=== PATIENT | male | born 1985 | race Caucasian/White ===

== ENCOUNTER 2020-03-04 20:48 | Inpatient (IN) | payer OTHER ==
[2020-03-04] MEDS ORDERED: Lorazepam 2 MG/ML VIAL ONE ×3 (21:07→21:58)
[2020-03-04 21:21] LABS: Bilirubin Negative (Negative); Blood, Urine Negative (Negative); Clarity Clear (Clear); Glucose, Urine (Dipstick) Normal (Negative); Ketone, Urine Negative (Negative); Leukocyte Negative Leu/uL (Negative); Nitrite Negative (Negative); Protein, Urine (Dipstick) 20 mg/dL (Neg-Trace); Specific Gravity, Urine 1.027 (1.002-1.036); Urobilinogen Normal mg/dL (Less than 2); pH, Urine 6.5 (5.0-9.0)
[2020-03-04 21:25] LABS: #Basophils 0.1 thou/uL (0.0-0.2); #Eosinphils 0.1 thou/uL (0.0-0.7); #Lymphocytes 4.8 thou/uL (1.20-3.40); #Monocytes 0.5 thou/uL (0.11-0.59); #Neutrophils 4.8 thou/uL (1.40-6.50); %Basophils 0.8 % (0.0-1.0); %Eosinophils 0.6 % (0.0-10.0); %Monocytes 4.8 % (0.0-10.0); %Neutrophils 46.8 % (42.0-75.0); Hemoglobin 11.7 g/dL (14.0-18.0); Mean Corpuscular HGB CONC 33.6 g/dL (32.0-36.0); Mean Corpuscular Hemoglobin 29.5 pg (27.0-31.0); Mean Corpuscular Volume 87.6 fL (78.0-98.0); Mean Platelet Volume 6.8 fL (7.4-10.4); Platelet Count 396 thou/uL (130-400); RBC Distribution Width 14.4 % (11.5-14.5); Red Blood Cell (RBC) Count 3.96 mill/uL (4.70-6.10); White Blood Cell (WBC) Count 10.3 thou/uL (4.8-10.8)
[2020-03-04 21:34] LABS: Amphetamine Not Detected (NotDetected); Barbiturates Screen Not Detected (NotDetected); Benzodiazepine Screen Detected (NotDetected); Cocaine Metabolite Screen Not Detected (NotDetected); Medtox Control Line Valid? VALID (VALID); Medtox Reader # READER 4; Methadone Not Detected (NotDetected); Methamphetamine Not Detected (NotDetected); Opiate Screen Not Detected (NotDetected); Oxycodone Screen Not Detected (NotDetected); Phencyclidine (PCP) Not Detected (NotDetected); THC/Cannabinoid Screen Not Detected (NotDetected); Tricyclic Screen Detected (NotDetected)
[2020-03-04 21:36] LABS: ALT (SGPT) Less than 7 U/L (8-55); AST (SGOT) 13 U/L (5-34); Albumin 3.8 g/dL (3.5-5.0); Alkaline Phosphatase 69 U/L (40-110); Anion Gap 12 mmol/L (10-20); BUN (Urea Nitrogen) 5 mg/dL (8.9-20.6); Bilirubin, Total 0.5 mg/dL (0.2-1.2); Calc. Creatinine Clearance 0 mL/min (70-130); Calcium 8.4 mg/dL (7.8-10.44); Carbon Dioxide 21 mmol/L (22-29); Chloride 111 mmol/L (98-107); Estimated GFR-MDRD 73; Globulin 2.6 g/dL (2.4-3.5); Glucose 91 mg/dL (70-105); Protein, Total 6.4 g/dL (6.0-8.3); Sodium 141 mmol/L (136-145)
[2020-03-04 21:39] LABS: Potassium 2.9 mmol/L (3.5-5.1)
[2020-03-04 21:40] LABS: Troponin I 0.014 ng/mL (< 0.028)
[2020-03-04 21:43] LABS: Acetaminophen Less than 6.0 mcg/mL (10.0-30.0); Alcohol Less than 10 mg/dL (Less than 10); CK (CPK) 142 U/L (30-200); Salicylate Less than 8.0 mg/dL (15.0-30.0)
[2020-03-04] MEDS ORDERED: NS 0.9% w/ 40 MEQ KCL 1,000 ML IV SCH (22:00)
[2020-03-04] MEDS ORDERED: Rocuronium Bromide 10 MG/ML (10ML VIAL) ONE (22:03)
[2020-03-04] MEDS ORDERED: Propofol 1,000 MG/100 ML VIAL IV ONE (22:19)
[2020-03-04] MEDS ORDERED: fentaNYL Citrate/PF 2,000 MCG in Sodium Chloride 0.9% 60 ML IV SCH ×2 (22:37→23:59)
--- NOTE | 2020-03-04 22:41 | RAD ---
EXAM: Single view of the chest HISTORY: Intubation for respiratory failure COMPARISON: None FINDINGS: Single view of the chest shows a normal sized cardiomediastinal silhouette. An endotrachea l tube is seen with its tip at the lower border of the clavicles. An NG tube is seen in the stomach. Scattered airspace opacities are seen in the left lower lobe. No acute osseous abnormality. IMPRESSION: 1. Left lower lobe infiltrate 2. Appropriate position of endotracheal tube and NG tube
[2020-03-04 22:56] LABS: Actual Bicarbonate (HCO3a) 19.8 mEq/L (22-28); Analyzer IN Cardio ER; Base Excess (BEa) -4.5 mEq/L (-2.0 to +3.0); CO2 Tension 34.1 mmHg (35.0-45.0); Calcium, Ionized (arterial) 1.11 mmol/L (1.12-1.30); Carboxyhemoglobin (COHb) 1.8 gm% (0.0-3.0); Hemoglobin (Hb) 12.3 g/dL (14.0-18.0); O2 Tension (PaO2), arterial 98.8 mmHg (80.0-100.0); Potassium - ABG Lab 2.72 mmol/L (3.70-5.30); pH, Arterial 7.38 (7.35-7.45)
[2020-03-04 23:00] LABS: ALV-art Gradient 143.775 (0-20); Puncture Site RRA
--- NOTE | 2020-03-04 23:31 | PDOC.FPRHP ---
- History of Present Illness Chief Complaint: overdose History of Present Illness: Pt is a 34yo male with hx of multiple drug overdoses who presents to ED after being found down. He was found down with 2 empty medicine bottles- aripiprazole and benadryl. He was taken by EMS to ED, was very combative despite being given multiple doses of ativan which eventually led to his sedation and intubation. History was not obtained from patient due to him being intubated. From records it is noted that he was seen at [facility] recently for lacerations to both arms, suicide attempt. History include drug abuse, drug overdose and multiple suicide attempts. ED Course: 6mg lorazepam, 2L NS, 20mg etomidate, 80mg rocuronium, intubated - Allergies/Adverse Reactions Allergies Allergy/AdvReac Type Severity Reaction Status Date / Time No Allergy Information Allergy Verified 03/05/20 00:30 Available - History PMHx: schizoaffective disorder, drub abuse, suicide attempts PSHx: unable to obtain FHx: unable to obtain Social: unable to obtain - Review of Systems ROS unobtainable: due to endotracheal tube - Vital signs BP: 141/105, HR 96, RR 33, T 96.8F - Physical Exam -Constitutional: intubated HEENT: PERRLA, no scleral icterus -HEENT: poor dentition Neck: trachea midline Chest: no lesions Heart: RRR, normal S1/S2 Lungs: CTAB, no wheezing Abdomen: soft, no masses/distention Musculoskeletal: normal structure, normal tone -Neurological: GCS 3T -Skin: laceration repaired on right forearm, laceration repaired x2 on left forearm Heme/Lymphatic: no unusual bruising or bleeding, no petechia Psychiatric: other (cannot assess) FMR H&P: Results - Labs Result Diagrams: 03/04/20 21:13 03/04/20 21:13 Lab results: WBC 10.3 thou/uL (4.8-10.8) 03/04/20 21:13 Hgb 11.7 g/dL (14.0-18.0) L 03/04/20 21:13 Hct 34.6 % (42.0-52.0) L 03/04/20 21:13 MCV 87.6 fL (78.0-98.0) 03/04/20 21:13 Plt Count 396 thou/uL (130-400) 03/04/20 21:13 Neutrophils % 46.8 % (42.0-75.0) 03/04/20 21:13 ABG pH 7.38 (7.35-7.45) 03/04/20 22:31 ABG pCO2 34.1 mmHg (35.0-45.0) L 03/04/20 22:31 ABG pO2 98.8 mmHg (80.0-100.0) 03/04/20 22:31 Sodium 141 mmol/L (136-145) 03/04/20 21:13 Potassium 2.9 mmol/L (3.5-5.1) L* 03/04/20 21:13 Chloride 111 mmol/L (98-107) H 03/04/20 21:13 Carbon Dioxide 21 mmol/L (22-29) L 03/04/20 21:13 BUN 5 mg/dL (8.9-20.6) L 03/04/20 21:13 Creatinine 1.15 mg/dL (0.7-1.3) 03/04/20 21:13 Glucose 91 mg/dL (70-105) 03/04/20 21:13 Calcium 8.4 mg/dL (7.8-10.44) 03/04/20 21:13 Total Bilirubin 0.5 mg/dL (0.2-1.2) 03/04/20 21:13 AST 13 U/L (5-34) 03/04/20 21:13 ALT Less than 7 U/L (8-55) L 03/04/20 21:13 Alkaline Phosphatase 69 U/L (40-110) 03/04/20 21:13 Creatine Kinase 142 U/L (30-200) 03/04/20 21:13 Serum Total Protein 6.4 g/dL (6.0-8.3) 03/04/20 21:13 Albumin 3.8 g/dL (3.5-5.0) 03/04/20 21:13 Urine Ketones Negative mg/dL (Negative) 03/04/20 21:06 Urine Blood Negative (Negative) 03/04/20 21:06 Urine Nitrite Negative (Negative) 03/04/20 21:06 Ur Leukocyte Esterase Negative Shiela/uL (Negative) 08/27/20 21:06 FMR H&P: A/P - Plan #Suicide attempt, drug overdose - hx of suicide attempts, drug abuse - poison control case #[id number]: repeat ekg q6h, if QRS>100 give 2 amp bicarb - intubated in ED due to combativeness - multiple lacs on forearms due to intentional self harm, 2 were previously repaired at [facility], repaired one on left forearm: 5cm, 9 tanner placed - tetanus shot and doxycylcine ordered - admit to CCU, consult pulmonology, appreciate recs - once stable, consider consult [facility] #LLL PNA vs Pneumonitis - possible aspiration due to encephalopathy 2/2 drug overdose - doxycycline ordered to cover anaerobes # Aucte encephalopathy 2/2 drug overdose - GCS 3T - will call poison control #hypokalemia - K 2.9 - gave potassium in ED - will recheck BMP Code: Full Diet: NPO IVF: LR 150 DVT ppx: lovenox Dispo: admit to CCU, will consult pulm and poison control, LOS >48 hours FMR H&P: Upper Level - Plan Date/Time: 03/04/20 0154 I, Mitzy Huffman MD, have evaluated this patient and agree with findings/plan as outlined by international sourcing manager resident. Pertinent changes/additions are listed here. This is a 34yo M w/ hx of schizophrenia who presents to the ER via [place] altered and agitated with empty bottles of ariprazole and benadryl. Per nursing report, the patient was seen at [facility] yesterday for cutting his wrists. Several past suicide attempts. Unable to obtain further information from patient due to patient being intubated /sedated. No contact information for family could be located at this time. In the ER, the patient was increasingly agitated and given lorazepam, but continued to be agitated and was therefore intubated. GCS of 7. EKG sinus tachycardia. PE: General: intubated/sedated Head: NC/AT, PERRL, trachea midline Cards: RRR, no murmurs, rubs, gallops Resp: CTAB Abd: non distended, non tense, normal BS Neuro: no eye opening, no verbal sounds on our exam, but previously combative and incomprehensible sounds, withdrawals to pain Skin: patient was noted to have 5cm wound on L forearm, stitches in seperate wound on L forearm and tanner on wound on right forearm. Plan: Acute metabolic encephalopathy 2/2 Drug overdose with suicide attempt Per EMS report, bottles of abilify and benadryl. EKG sinus tachycardia, QRS 90, QTc 649. - Will call poison control for recommendations - UDS pending - Patient remains ventilated/sedation. Will consult pulm for vent management. Appreciate recs. - Monitor on tele - Will start on doxycycline to cover for possible aspiration PNA and skin. Procal pending. - Will need MHMR consult once medically stable Hypokalemia K 2.9. - Will continue to monitor. Replace as necessary. Monitor tele. LLL PNA vs pneumonitis CXR showing LLL infiltrate. - Procal pending - Will cover with doxy for now. - COVID pending Skin laceration L forearm - Skin lac repair in the ER of L forearm Schizophrenia - Will consult MHMR once medically stable Lines: calvillo, intubated, NG, peripheral x 2 Ppx: lovenox, pepcid Code: Full PCP: none Case discussed with Dr. Pena Addendum - Attending - Attending Attestation Date/Time: 03/05/20 3083 I personally evaluated the patient and discussed the management with Dr. Begum/ Nathanael. I agree with the History, Examination, Assessment and Plan documented above with any addition or exceptions noted below. see my dictated H&P for details. Doc# [id number]
[2020-03-04] MEDS ORDERED: Ventilator Sedation Protocol 1 EACH FS SCH (23:45)
[2020-03-04] MEDS ORDERED: Ondansetron PF 4 MG/2 ML Vial IVP PRN (23:53)
[2020-03-04] MEDS ORDERED: Acetaminophen 325 MG TAB PO PRN (23:53)
[2020-03-04] MEDS ORDERED: Ondansetron ODT 4 MG TAB PO PRN (23:53)
[2020-03-04] MEDS ORDERED: Acetaminophen 650 MG Suppository PR PRN (23:53)
[2020-03-04] MEDS ORDERED: Lorazepam 2 MG/ML VIAL SLOW IVP PRN (23:59)
[2020-03-04] MEDS ORDERED: Fentanyl BOLUS 250 ML IVPB PRN (23:59)
[2020-03-04] MEDS ORDERED: DISCONTINUE PREVIOUS NARCOTIC PAIN MEDICATIONS AND BENZODIAZEPINES FS SCH (23:59)
[2020-03-04] MEDS ORDERED: Propofol BOLUS 1,000 MG/100 ML VIAL IV PRN (23:59)
[2020-03-04] MEDS ORDERED: Morphine 2 MG/ML VIAL SLOW IVP PRN (23:59)
[2020-03-05 00:15] VITALS: BMI 26.6
--- NOTE | 2020-03-05 00:33 | PDOC.BPN ---
<Melina Begum - Last Filed: 03/05/20 00:28> - Brief Progress Note Procedure Name: Laceration Repair Indication: Reduce risk of infection Location: left forearem Pre-Procedure Diagnosis: Laceration Post-Procedure Diagnosis: Repaired Laceration Informed consent was not obtained due to patient being intubated. PROCEDURE: The appropriate timeout was taken. The wound was copiously irrigated. 9 tanner were placed. Estimated blood loss was less than 0.5 mL. A dressing was applied to the area and anticipatory guidance, as well as standard post-procedure care, was explained. Return precautions are given. The patient tolerated the procedure well without complications. Follow-up visit in one week for staple removal and evaluation of the laceration. <Efren Pena - Last Filed: 03/05/20 00:35> - Brief Progress Note ATTENDING ADDENDUM: Present for and supervised procedure above.
[2020-03-05] MEDS: Lactated Ringer's 1,000 ML IV SCH ×2 (01:46→05:00)
[2020-03-05] MEDS: Propofol 1,000 MG/100 ML VIAL IV PRN ×2 (02:05→04:57)
[2020-03-05 04:06] LABS: #Basophils 0.1 thou/uL (0.0-0.2); #Lymphocytes 2.7 thou/uL (1.20-3.40); #Monocytes 0.4 thou/uL (0.11-0.59); #Neutrophils 4.4 thou/uL (1.40-6.50); %Basophils 0.7 % (0.0-1.0); %Eosinophils 0.4 % (0.0-10.0); %Lymphocytes 35.5 % (21.0-51.0); %Monocytes 4.8 % (0.0-10.0); %Neutrophils 58.7 % (42.0-75.0); Hemoglobin 9.8 g/dL (14.0-18.0); Mean Corpuscular HGB CONC 32.9 g/dL (32.0-36.0); Mean Corpuscular Hemoglobin 29.5 pg (27.0-31.0); Mean Corpuscular Volume 89.8 fL (78.0-98.0); Mean Platelet Volume 6.6 fL (7.4-10.4); Platelet Count 309 thou/uL (130-400); RBC Distribution Width 14.4 % (11.5-14.5); Red Blood Cell (RBC) Count 3.33 mill/uL (4.70-6.10); White Blood Cell (WBC) Count 7.5 thou/uL (4.8-10.8)
[2020-03-05 04:23] LABS: Anion Gap 11 mmol/L (10-20); BUN (Urea Nitrogen) 4 mg/dL (8.9-20.6); Calc. Creatinine Clearance 158 mL/min (70-130); Calcium 7.6 mg/dL (7.8-10.44); Carbon Dioxide 21 mmol/L (22-29); Chloride 116 mmol/L (98-107); Estimated GFR-MDRD Greater than 90; Glucose 98 mg/dL (70-105); Sodium 144 mmol/L (136-145)
[2020-03-05 04:24] LABS: Magnesium 1.8 mg/dL (1.6-2.6); Phosphorus 3.6 mg/dL (2.3-4.7)
--- NOTE | 2020-03-05 06:14 | PDOC.FM ---
- Subjective Subjective: Patient was sedated and intubated during the evaluation without evidence of cardiopulmonary distress or uncontrolled pain. - Objective Vital Signs & Weight: Vital Signs (12 hours) Temp Pulse Resp Pulse Ox 03/05/20 06:00 12 03/05/20 04:00 97.5 F L 12 03/05/20 02:25 78 03/05/20 02:00 23 H 03/05/20 00:30 23 H 100 03/05/20 00:00 97.9 F 03/04/20 23:59 92 03/04/20 20:56 97.9 F Weight Weight 89.2 kg Most Recent Monitor Data Heart Rate from ECG 71 NIBP 102/68 NIBP BP-Mean 79 Respiration from ECG 14 SpO2 100 I&O: 03/03/20 03/04/20 03/05/20 06:59 06:59 06:59 Intake Total 1231 Output Total 2075 Balance -844 Result Diagrams: 03/05/20 03:54 03/05/20 03:54 Phys Exam - Physical Examination Constitutional: NAD HEENT: moist MMs Neck: supple Respiratory: no wheezing, no rales, no rhonchi, clear to auscultation bilateral Cardiovascular: RRR, no significant murmur, no rub Gastrointestinal: soft, non-tender, no distention, positive bowel sounds Musculoskeletal: no edema, pulses present Lymphatic: no nodes Deviation from normal: GCS: 3T Deviation from normal: s/p Lac Repair on Left Forearm - bandage in place Dx/Plan (1) Toxic metabolic encephalopathy Code(s): G92 - TOXIC ENCEPHALOPATHY Status: Acute (2) Drug overdose, intentional Code(s): T50.902A - POISONING BY UNSP DRUG/MEDS/BIOL SUBST, SELF-HARM, INIT Status: Acute (3) Suicide attempt Status: Acute (4) Anticholinergic drug overdose Code(s): T44.3X1A - POISONING BY OTH PARASYMPATH AND SPASMOLYTICS, ACC, INIT Status: Acute (5) Hypokalemia Code(s): E87.6 - HYPOKALEMIA Status: Acute (6) Laceration Code(s): PKU2204 - Status: Acute (7) Schizoaffective disorder Code(s): F25.9 - SCHIZOAFFECTIVE DISORDER, UNSPECIFIED Status: Chronic - Plan Plan: Patient is a 34 y/o male who presents to the ED [place] following an apparent intentional drug overdose of Aripiprazole and Diphenhydramine. #Toxic Metabolic Encephalopathy -Likely secondary to Intentional Drug Overdose (Aripiprazole, Diphenhydramine) -Per chart review, patient has a Hx of suicide attempts and drug abuse -Intubated in the ED due to combativeness, did not respond to initial management with Benzos - admitted to the ICU -VSS with unremarkable Physical Exam except as documented below -Anion Gap: 9 -Cr: 1.15 -Glucose: 91 -M.8 / Phos: 3.6 -AST: 13 / ALT: <7 -CK: 142 -Trop: 0.014 -TSH: 0.9667 -Fluid resuscitation ongoing w/ LR @ 150 ml/hr -Pulm: Consulted, recs appreciated #Suicide Attempt (Drug Overdose) -Poison Control: Consulted, recommended repeat EKG Q6H - if QRS>100 then administer 2 amps BiCarb (Case: #[id number]) -EKG (0200): NSR, QRS: 98 ms -Will plan for Suicide Precautions following extubation -Case Management: Consulted, recs appreciated -Will consult MHMR following extubation -See Above #LLL PNA vs Pneumonitis -CXR: Possible LLL infiltrate -Possibly secondary to Toxic Metabolic Encephalopathy -Doxycycline 100 mg BID for anaerobic coverage -Afebrile on arrival - no fevers documented since admission -WBC: 10.3 > 7.5 -Procal: < 0.02 -Will likely DC ABx based on low suspicion for PNA #Hypokalemia -K: 2.9 on admission > 4.0 on 03/05 -s/p K 40 meEq administration in the ED -Will monitor closely via AM Labs - supplement as needed #Lacerations -Multiple lacs noted on forearms in various stages of repair, likely intentional -Per chart review, 2 were previously repaired at [employer] repaired additional lac via staple placement -s/p Tetanus PPx in ED -Will plan for Suicide Precautions following extubation #Schizoaffective Disorder -Will restart home medications following stabilization and MHMR consult PCP: CC Code: Full Diet: NPO Activity: Bed Rest VTE PPx: Lovenox GI PPx: Famotidine Dispo: Patient is currently stable and admitted to the CCU. Will continue IVF as per above and monitor serial EKGs. Pulm, Poison Control and Case Management consulted, recs appreciated. Will attempt to wean sedation and extubate as tolerated. Will plan for MHMR consult and Suicide Precautions immediately thereafter. Expected LOS 48H. Addendum - Attending - Attending Attestation Date/Time: 03/05/20 1012 I personally evaluated the patient and discussed the management with Dr. Rios. I agree with the History, Examination, Assessment and Plan documented above with any addition or exceptions noted below. The patient remains intubated and sedated. He was admitted following intentional overdose with history of multiple suicide attempts. He was agitated in the ER and was sedated. Pt's EKG's have been unremarkable. Pt will need MHMR evaluation when he is extubated. Pt reportedly has an extensive psych history.
--- NOTE | 2020-03-05 06:31 | HP ---
CHIEF COMPLAINT: Altered mental status, overdose. HISTORY OF PRESENT ILLNESS: I have reviewed all documentation, discussed the care and manage of this patient with doctors with Dr. Begum and Dr. Huffman. I agree with the documentation, the history and physical unless otherwise stated in the following attestation. In summary, Mr. Magana is a 34-year-old male with a known past medical history of schizoaffective disorder with reported history of multiple recent ER visits throughout the area for suicide attempts. He presented to the ER via helicopter transport [place] railroad workers with empty bottles of Abilify and Benadryl next to him. He was altered, agitated and actively suicidal at the time. He was promptly brought to the [facility] ER for evaluation. While in the ER, he appeared more agitated and it was felt that he was a harm to himself and the staff at that time. He was RSI medications and intubated to protect himself and the hospital staff due to his progressively worsening agitation. At the time of my examination, the patient was approximately 20 minutes post RSI and intubation. He was nonresponsive, due to this he was unable to provide any additional history. Residents are in the process of calling his family to discuss his medical history and recent illness. ER COURSE: Labs, EKG, chest x-ray, RSI for agitation requiring large doses of sedatives. Please see communications marketing intern note for past medical, surgical, social, and family history. PHYSICAL EXAMINATION: VITAL SIGNS: Blood pressure 150/90, pulse 105, respiratory rate of 30, temp 98.1, oxygen saturation 100% on mechanical ventilation. Ventilator settings SIMV with a rate of a rate 12, tidal volume 550, PEEP 5, pressure support 10, FiO2 40%, peak and plateau air pressures are within normal limits. PHYSICAL EXAMINATION: GENERAL: Intubated, sedated, nonresponsive. HEENT: Normocephalic, atraumatic. Pupils equal, round, reactive to light. PERRLA. Mucous membranes are dry. CARDIOVASCULAR: Tachycardic, regular. No murmurs. PULMONARY: Clear to auscultation bilaterally. ABDOMEN: Soft, nondistended. SKIN: There are multiple lacerations from reported self-harm on his forearms. On his right forearm, there is a stapled laceration that is approximately 67 minutes cm in length. On his left forearm, there are 2 lacerations, 1 that is approximately 4 to 5 cm with nylon sutures in place. He also appears to have a new unclosed laceration approximately 6 cm below the antecubital fossa that is not actively bleeding at this time. He has dried blood on his left hand. NEUROLOGIC: Cannot assess due to intubation and recent use of paralytic agents. PERTINENT LABORATORY FINDINGS: Blood gas, pH 7.38, pCO2 34.1, pO2 98.8, bicarb 19.8, TSH 0.86. Troponin negative. Tylenol negative. Salicylates negative. CPK 142 , potassium 2.9, chloride 111. Urine drug screen positive for benzodiazepines and tricyclics. Hemoglobin 11, platelets 396. Urinalysis was negative. IMAGING: EKG reviewed by me, sinus tachycardia, rate 108, VA interval prolonged 142, no obvious ST depressions or elevations. Normal QRS intervals and borderline prolonged QTc interval of 469, borderline LVH. Chest x-ray reviewed by me. Left lower lobe infiltrate. Endotracheal tube terminates 1 or 2 cm below the clavicle. Orogastric tube is below the diaphragm. No obvious fractures. Normal-appearing cardiac silhouette. DISCUSSION AND DECISION-MAKING: Mr. Magana is a 34-year-old male with known past history of schizoaffective disorder with history of self-harm and suicide attempts. He presented with what appears to be an intentional overdose using Abilify and Benadryl. At this time, we are unsure, if there are other medications taken. Due to his agitation, he was sedated, paralyzed and intubated to protect himself and hospital staff. Exam is remarkable for obvious signs of self-harm. Labs remarkable for low potassium. PLAN OF TREATMENT: As follows. 1. Suicide attempts via intentional overdose with Abilify and Benadryl. We will contact poison control and await for additional recommendations and management. The patient to remain intubated and sedated until further medications began to wear off and he can be safely cared for. Continue ventilatory support. Residents to contact family for additional history and to update them on his current status. 2. Hypokalemia. We will replete and monitor closely. He has currently received 40 mEq at this time. 3. Schizoaffective disorder. We will discuss with family and restart home medications, so long as Abilify is not a home medication. 4. Prolonged VA interval likely as a result of overdose. Repeat EKG tomorrow morning. 5. Forearm laceration, this was reapproximated with tanner by my team. See the resident note for additional details. Will give tetunus booster and start doxycycline empirically as he cannot provide history of onset of the wound or how it occurred. Concern for self harm. 6. Left lower lobe pneumonia vs pneumonitis. Procalcitonin pending. doxycycline for coverage. 7.See communications marketing intern note for management of chronic medical problems. DISPOSITION: Estimated length of stay. Inpatient critical care unit greater than 2 midnights. Approximately 40 minutes critical care time was spent on this patient by me, excluding time spent on the laceration repair of his forearm. Job ID: [id number] MTDD
[2020-03-05 07:14] VITALS: BP 104/77
[2020-03-05] MEDS ORDERED: Adacel (T-DAP) 0.5 ML SYRINGE IM ONE (09:00)
[2020-03-05] MEDS ORDERED: Enoxaparin Sodium 40 MG/0.4 ML SYRINGE SC SCH ×2 (09:00→13:30)
[2020-03-05] MEDS ORDERED: Famotidine/PF 20 mg/2ml Vial SLOW IVP SCH (09:00)
[2020-03-05] MEDS ORDERED: Prevnar 13-Val Conj/PF 0.5 ML SYRINGE IM ONE (13:00)
[2020-03-05 13:02] VITALS: TEMP 98.9
[2020-03-05] MEDS ORDERED: Haloperidol Lactate 5 MG/ML VIAL IM PRN (14:18)
[2020-03-05 14:29] LABS: SARS-CoV-2 MS2 Positive; SARS-CoV-2 N Gene Negative; SARS-CoV-2 S Gene Negative; SARS-CoV-2 by NAA Not Detected (NotDetected); SARS-CoV-2 orf1ab Negative
--- NOTE | 2020-03-05 15:05 | PDOC.BPN ---
- Brief Progress Note Pt is stating he wants to leave. Discussed in length with patient he needs to stay. This is my first encounter with the patient but he does not demonstrate good insight or judgment. He has attempted suicide and personally harmed himself twice in the previous two days. Pt has vocalized intent to harm himself and suicide to co-residents. Haldol has been ordered if needed to chemically restrain. If this is not achievable nursing staff has notified Doyle GONZALEZ to ensure safety of patient and staff. Goal is to keep patient and safely get him to inpatient psychiatry with the [facility]. Myke Son, 03/05/20 1500
--- NOTE | 2020-03-05 16:01 | CON ---
DATE OF CONSULTATION: HISTORY OF PRESENT ILLNESS: A 34-year-old gentleman, who was brought to the ER yesterday around 2049 with intentional overdose of aripiprazole and Benadryl. He was altered. He was intubated. No additional information obtained. Apparently, his father is a nurse practitioner here locally in [place]. He is supposed to be taking Wellbutrin 150 mg once a day and Seroquel 200 mg 2 times a day. Additional information is that he has had previous history of suicidal intentions. PAST MEDICAL HISTORY: Pertinent for bipolar schizophrenic, PTSD issues. PAST SURGICAL HISTORY: Otherwise unknown. ALLERGIES: UNKNOWN. TOBACCO AND ALCOHOL: Unknown at this time. PHYSICAL EXAMINATION: GENERAL: He is intubated and sedated. VITAL SIGNS: Pulse 66, sats 100% on FiO2, blood pressure 101/72. CHEST: Reveals no wheezing, no crackles. CARDIAC: Normal S1 and S2. No gallop. ABDOMEN: Soft. LABORATORY DATA: White count is 7, H and H 9 and 29, platelet count is normal. PO2 of 98, pCO2 30, pH 7.38. Lytes are normal. Potassium is 4. Urine was normal. His drug screen showed tricyclics and benzos. X-ray, questionable left-sided infiltrate. ASSESSMENT: History of presumed overdose on Benadryl and aripiprazole, unknown quantity, but apparently altered mental status, nothing else found. Possibly left-sided pneumonia. History of posttraumatic stress disorder, schizophrenia, bipolar disorder. PLAN: We will hold sedation. Consider weaning and extubation if he remains stable. He is going to require ongoing counseling at [facility]. This is a 45-minute critical time. Job ID: [id number]
[2020-03-06] MEDS ORDERED: Nicotine 21 MG PATCH TD SCH (12:00)
--- NOTE | 2020-03-06 14:40 | EKG ---
Test Reason : Blood Pressure : / mmHG Vent. Rate : 108 BPM Atrial Rate : 108 BPM P-R Int : 152 ms QRS Dur : 098 ms QT Int : 350 ms P-R-T Axes : 078 061 080 degrees QTc Int : 469 ms Sinus tachycardia Septal infarct , age undetermined Abnormal ECG Confirmed by LEÓN GILL, ARACELI Vázquez ([id number]), editor city [place]OLA HERNANDEZ ([id number]) on 03/06/2020 2:39:41 PM Referred By: Confirmed By:ARACELI TRAORE MD
--- NOTE | 2020-03-08 17:29 | EKG ---
Test Reason : Blood Pressure : / mmHG Vent. Rate : 067 BPM Atrial Rate : 067 BPM P-R Int : 170 ms QRS Dur : 094 ms QT Int : 412 ms P-R-T Axes : 067 030 046 degrees QTc Int : 435 ms Normal sinus rhythm Normal ECG Confirmed by RUFINA COLLINS (2) on 03/08/2020 5:29:38 PM Referred By: JUAN M Confirmed By:RUFINA COLLINS
--- NOTE | 2020-03-08 17:29 | EKG ---
Test Reason : Blood Pressure : / mmHG Vent. Rate : 075 BPM Atrial Rate : 075 BPM P-R Int : 166 ms QRS Dur : 098 ms QT Int : 406 ms P-R-T Axes : 055 015 055 degrees QTc Int : 453 ms Sinus rhythm with Premature supraventricular complexes Possible Lateral infarct , age undetermined Abnormal ECG When compared with ECG of 04-MAR-2020 20:57, (Unconfirmed) Premature supraventricular complexes are now Present Confirmed by RUFINA COLLINS (2) on 03/08/2020 5:29:00 PM Referred By: YOJANA Confirmed By:RUFINA COLLINS
--- NOTE | 2020-03-08 17:42 | EKG ---
Test Reason : Blood Pressure : / mmHG Vent. Rate : 097 BPM Atrial Rate : 097 BPM P-R Int : 184 ms QRS Dur : 098 ms QT Int : 346 ms P-R-T Axes : 064 -02 054 degrees QTc Int : 439 ms Normal sinus rhythm Normal ECG Confirmed by RUFINA COLLINS (2) on 03/08/2020 5:42:27 PM Referred By: JUAN M Confirmed By:RUFINA COLLINS
== END 2020-03-05 16:00 | disposition home or self-care (01) | DRG 917 ==
LOC: ERS 20:48 → CCU 22:05
PROVIDERS: ADMIT Family Medicine; ATTEND Family Medicine
PROC: 0BH17EZ Insertion of Endotracheal Airway into Trachea, Via Natural or Artificial Opening (ICD-10-PCS; principal; 2020-03-04)
PROC: 5A1935Z Respiratory Ventilation, Less than 24 Consecutive Hours (ICD-10-PCS; 2020-03-04)
PROC: 0HQEXZZ Repair Left Lower Arm Skin, External Approach (ICD-10-PCS; 2020-03-05)
DX: T44.3X2A Poisoning by other parasympatholytics [anticholinergics and antimuscarinics] and spasmolytics, intentional self-harm, initial encounter (principal); R40.2342 Coma scale, best motor response, flexion withdrawal, at arrival to emergency department; R40.2112 Coma scale, eyes open, never, at arrival to emergency department; R40.2222 Coma scale, best verbal response, incomprehensible words, at arrival to emergency department; J18.9 Pneumonia, unspecified organism; G92 Toxic encephalopathy; Z79.899 Other long term (current) drug therapy; T45.0X2A Poisoning by antiallergic and antiemetic drugs, intentional self-harm, initial encounter; F25.9 Schizoaffective disorder, unspecified; T43.592A Poisoning by other antipsychotics and neuroleptics, intentional self-harm, initial encounter; E87.5 Hyperkalemia; S51.811A Laceration without foreign body of right forearm, initial encounter; E78.5 Hyperlipidemia, unspecified; F43.10 Post-traumatic stress disorder, unspecified; F20.9 Schizophrenia, unspecified; F31.9 Bipolar disorder, unspecified; S51.812A Laceration without foreign body of left forearm, initial encounter; X83.8XXA Intentional self-harm by other specified means, initial encounter; Z20.828 Contact with and (suspected) exposure to other viral communicable diseases
CPT/HCPCS: 31500; 36415; 51702; 71045; 80048; 80053; 80306; 80307; 81003; 82550; 82805; 83735; 84100; 84145; 84443; 84484; 85025; 87635; 93005; 93010; 94002; 94003; 96365; 96368; 96375; 96376; J2060; J2704; J3010; J3480; J3490; U0003

== ENCOUNTER 2022-09-07 20:04 | Emergency (ER) | payer OTHER ==
[2022-09-07] MEDS ORDERED: levETIRAcetam 500 MG/5 ML VIAL ONE (20:27)
[2022-09-07] MEDS ORDERED: LORazepam 2 MG/ML SYR.(CARPUJECT) ONE (20:28)
== END 2022-09-07 21:00 | disposition home or self-care (01) ==
LOC: ERS 20:04
DX: G40.909 Epilepsy, unspecified, not intractable, without status epilepticus (principal); I10 Essential (primary) hypertension; J44.9 Chronic obstructive pulmonary disease, unspecified; F17.210 Nicotine dependence, cigarettes, uncomplicated
CPT/HCPCS: 93005; 96365; 96375; J1953; J2060

== ENCOUNTER 2022-10-08 16:28 | Emergency (ER) | payer OTHER ==
[2022-10-08] MEDS ORDERED: levETIRAcetam 500 MG/5 ML VIAL ONE (17:13)
[2022-10-08 17:46] LABS: #Basophils 0.1 thou/uL (0.0-0.2); #Eosinphils 0.1 thou/uL (0.0-0.7); #Lymphocytes 3.7 thou/uL (1.20-3.40); #Monocytes 0.6 thou/uL (0.11-0.59); #Neutrophils 5.7 thou/uL (1.40-6.50); %Eosinophils 0.8 % (0.0-10.0); %Lymphocytes 36.5 % (21.0-51.0); %Monocytes 6.1 % (0.0-10.0); %Neutrophils 55.5 % (42.0-75.0); Hemoglobin 14.2 g/dL (14.0-18.0); Mean Corpuscular HGB CONC 34.4 g/dL (32.0-36.0); Mean Corpuscular Hemoglobin 31.4 pg (27.0-31.0); Mean Corpuscular Volume 91.4 fl (78.0-98.0); Mean Platelet Volume 7.1 fL (7.4-10.4); Platelet Count 309 10x3/uL (130-400); RBC Distribution Width 14.2 % (11.5-14.5); Red Blood Cell (RBC) Count 4.53 mill/uL (4.70-6.10); White Blood Cell (WBC) Count 10.2 10x3/uL (4.8-10.8)
[2022-10-08 18:09] LABS: ALT (SGPT) 23 U/L (8-55); AST (SGOT) 20 U/L (5-34); Albumin 4.4 g/dL (3.5-5.0); Alkaline Phosphatase 81 U/L (40-110); Anion Gap 20 mmol/L (10-20); BUN (Urea Nitrogen) 8 mg/dL (8.9-20.6); Bilirubin, Total 0.3 mg/dL (0.2-1.2); Calc. Creatinine Clearance 0 mL/min (70-130); Carbon Dioxide 18 mmol/L (22-29); Chloride 103 mmol/L (98-107); Estimated GFR 84; Globulin 3.4 g/dL (2.4-3.5); Glucose 94 mg/dL (70-105); Potassium 3.7 mmol/L (3.5-5.1); Protein, Total 7.8 g/dL (6.0-8.3); Sodium 137 mmol/L (136-145)
== END 2022-10-08 19:43 | disposition home or self-care (01) ==
LOC: ERS 16:28
DX: R56.9 Unspecified convulsions (principal); I10 Essential (primary) hypertension; J44.9 Chronic obstructive pulmonary disease, unspecified; F17.210 Nicotine dependence, cigarettes, uncomplicated
CPT/HCPCS: 36415; 80053; 80177; 85025; 93005; 96374; J1953